=== PATIENT | female | born 1970 | race Caucasian/White ===

== ENCOUNTER 2017-05-12 08:16 | Outpatient (CLI) | payer OTHER ==
--- NOTE | 2017-05-13 10:21 | Mammography Report ---
DIGITAL SCREENING MAMMOGRAM: 05/12/2017 COMPARISON: 08/31/2013. TECHNIQUE: Bilateral digital CC and MLO projections. FINDINGS: The breast tissue is heterogeneously dense. There is no dominant mass, architectural disto rtion, or skin thickening. On the left, no suspicious calcifications. On the right, there are new upper outer quadrant calcifications in the posterior third for which magn ification views are suggested. IMPRESSION: NEGATIVE LEFT BREAST. NEEDS ADDITIONAL EVALUATION RIGHT BREAST. BIRADS CATEGORY 0-INCOMPLETE. STANDARD QUALIFYING STATEMENTS 1. This examination was reviewed with the aid of Computer-Aided Detection (CAD). 2. A negative or benign imaging report should not delay biopsy if clinically suspicious findings are present. Consider surgical consultation if warranted. More than 5% of cancers are not identified by i maging. 3. Dense breasts may obscure an underlying neoplasm. JOB #: [id number] EXT JOB #:[id number]
== END 2017-05-12 08:17 | disposition home or self-care (01) ==
LOC: DI.N 08:16
PROVIDERS: ATTEND Physician Assistant Medical
DX: Z12.31 Encounter for screening mammogram for malignant neoplasm of breast (principal); R92.1 Mammographic calcification found on diagnostic imaging of breast
CPT/HCPCS: 77067

== ENCOUNTER 2017-07-04 09:47 | Outpatient (CLI) | payer MEDICAID ==
--- NOTE | 2017-07-04 13:13 | Mammography Report ---
DIGITAL DIAGNOSTIC RIGHT MAMMOGRAM: 07/04/2017 CLINICAL INDICATION: Calcifications right breast. TECHNIQUE: Right true lateral and spot magnification views. COMPARISON: 05/12/2017, 08/31/2013, 07/24/2012 FINDINGS: The right breast again demonstrates heterogeneously dense fibroglandular parenchyma. The calcifications in the right outer posterior breast demonstrate layering on true lateral views, compat ible with milk of calcium, a benign finding. No suspicious pleomorphism is seen. IMPRESSION: BENIGN FINDINGS. RECOMMENDATION: Routine annual screening unless otherwise clinically indicated. BIRADS CATEGORY 2 - BENIGN FINDINGS. STANDARD QUALIFYING STATEMENTS 1. This examination was reviewed with the aid of Computer-Aided Detection (CAD). 2. A negative or benign imaging report should not delay biopsy if clinically suspicious findings are present. Consider surgical consultation if warranted. More than 5% of cancers are not identified by i maging. 3. Dense breasts may obscure an underlying neoplasm. JOB #: [id number] EXT JOB #:[id number]
== END 2017-07-04 09:48 | disposition home or self-care (01) ==
LOC: DI 09:47
PROVIDERS: ATTEND Physician Assistant Medical
DX: R92.8 Other abnormal and inconclusive findings on diagnostic imaging of breast (principal)